=== PATIENT | female | born 1950 ===

== ENCOUNTER 2020-08-05 10:12 | Outpatient (CLI) | payer OTHER ==
[~2020-08-05 10:12] MED LIST: ZIAC 2.5-6.25 M1 TAB
== END 2020-08-05 10:24 | disposition home or self-care (01) ==
LOC: RAD 10:12
PROVIDERS: ATTEND Physical Medicine & Rehabilitation
DX: M41.87 Other forms of scoliosis, lumbosacral region (principal); M54.5 Low back pain; M16.11 Unilateral primary osteoarthritis, right hip

== ENCOUNTER 2020-10-13 12:49 | Outpatient (CLI) | payer OTHER | END 2020-10-13 12:58 | disposition home or self-care (01) | LOC: MRI 12:49 | PROVIDERS: ATTEND Physical Medicine & Rehabilitation | DX: M54.2 Cervicalgia (principal); M54.12 Radiculopathy, cervical region | CPT/HCPCS: 72141 ==

== ENCOUNTER 2021-04-14 11:09 | Outpatient (CLI) | payer OTHER | END 2021-04-14 11:16 | disposition home or self-care (01) | LOC: RAD 11:09 | PROVIDERS: ATTEND Specialist | DX: J45.998 Other asthma (principal) ==

== ENCOUNTER 2021-12-15 07:08 | Outpatient (CLI) | payer OTHER | END 2021-12-15 07:15 | disposition home or self-care (01) | LOC: SONOGRAMA 07:08 | PROVIDERS: ATTEND Specialist | DX: I71.4 Abdominal aortic aneurysm, without rupture (principal); N19 Unspecified kidney failure ==

== ENCOUNTER 2023-03-31 09:15 | Outpatient (CLI) | payer OTHER | END 2023-03-31 09:26 | disposition home or self-care (01) | LOC: SONOGRAMA 09:15 | PROVIDERS: ATTEND Specialist | DX: N19 Unspecified kidney failure (principal) ==

== ENCOUNTER 2023-07-06 08:07 | Outpatient (CLI) | payer OTHER | END 2023-07-06 08:14 | disposition home or self-care (01) | LOC: RAD 08:07 | PROVIDERS: ATTEND Specialist | DX: J45.991 Cough variant asthma (principal) ==

== ENCOUNTER 2024-05-21 11:35 | Outpatient (CLI) | payer OTHER | END 2024-05-21 11:43 | disposition home or self-care (01) | LOC: TOM 11:35 | PROVIDERS: ATTEND Specialist | DX: G57.00 Lesion of sciatic nerve, unspecified lower limb (principal); G57.01 Lesion of sciatic nerve, right lower limb; M53.86 Other specified dorsopathies, lumbar region ==